=== PATIENT | female | born 1940 | race Caucasian/White ===

== ENCOUNTER → 2021-09-04 | Outpatient (CLI) | payer MEDICARE ==
[2021-09-04 20:43] LABS: ALBUMIN 2.5 gm/dL (3.4-4.8); BILIRUBIN,TOTAL 0.5 mg/dL (0.2-1.2); CALCIUM 9.9 mg/dL (8.4-10.2); CREATININE, serum 1.14 mg/dL (0.57-1.11); POTASSIUM 4.1 mmol/L (3.5-4.5); TOTAL PROTEIN 7.6 gm/dL (6.2-8.1)
== END ==
LOC: ZCOL.LAB 20:21
PROVIDERS: Internal Medicine
DX: Z01.89 Encounter for other specified special examinations (principal)

== ENCOUNTER → 2021-09-06 | Outpatient (REF) ==
[2021-09-06 16:09] LABS: BASO # 0.1 K/mm3 (0.0-0.2); BASO % 0.6 % (0.0-2.0); EOS # 0.2 K/mm3 (0.0-0.7); EOS % 1.3 % (0.0-4.0); GRAN # 8.9 K/mm3 (1.4-6.5); GRAN % 76.7 % (42.2-75.2); HEMOGLOBIN 10.1 g/dl (12.5-16.0); LYMPH # 1.7 K/mm3 (1.2-3.4); LYMPH % 14.6 % (20.0-51.0); MEAN CELL VOLUME 91 fl (80.0-100.0); MEAN CORPUSCULAR HEMOGLOBIN 29 pg (27-31); MEAN CORPUSCULAR HGB CONC 32 g/dl (33.0-37.0); MEAN PLATELET VOLUME 10.3 fl (7.4-10.4); MONO # 0.7 K/mm3 (0.1-0.6); MONO % 6.3 % (1.7-9.3); PLATELET COUNT 845 K/mm3 (130-400); RED BLOOD COUNT 3.54 M/mm3 (4.10-5.30); REDCELL DISTRIBUTION WIDTH-CV 13.7 % (11.5-14.5)
[2021-09-06 16:10] LABS: HEMATOCRIT 32.1 % (37.0-47.0)
[2021-09-06 16:25] LABS: ALBUMIN 2.6 gm/dL (3.4-4.8); BILIRUBIN,TOTAL 0.5 mg/dL (0.2-1.2); C-REACTIVE PROTEIN 3.94 mg/dL (0.00-0.50); CALCIUM 9.7 mg/dL (8.4-10.2); CREATININE, serum 1.13 mg/dL (0.57-1.11); POTASSIUM 3.7 mmol/L (3.5-4.5); TOTAL PROTEIN 7.5 gm/dL (6.2-8.1)
[2021-09-06 16:39] LABS: ERYTHROCYTE SEDIMENTATION RATE > 140 mm/hr (0-30)
== END ==
LOC: ZLAB.STJ 15:59
PROVIDERS: Internal Medicine
DX: D64.9 Anemia, unspecified (principal)

== ENCOUNTER 2021-09-07 15:32 | Emergency (ER) | payer MEDICARE ==
[~2021-09-07] VITALS: Ht 160 cm; Wt 65.5 kg
[2021-09-07 15:35] VITALS: TEMP 98.5
[2021-09-07 16:15] LABS: BASO # 0.1 K/mm3 (0.0-0.2); BASO % 0.8 % (0.0-2.0); EOS # 0.1 K/mm3 (0.0-0.7); EOS % 0.8 % (0.0-4.0); GRAN # 9.9 K/mm3 (1.4-6.5); GRAN % 75.8 % (42.2-75.2); HEMOGLOBIN 10.6 g/dl (12.5-16.0); LYMPH # 1.9 K/mm3 (1.2-3.4); LYMPH % 14.2 % (20.0-51.0); MEAN CELL VOLUME 90 fl (80.0-100.0); MEAN CORPUSCULAR HEMOGLOBIN 29 pg (27-31); MEAN CORPUSCULAR HGB CONC 32 g/dl (33.0-37.0); MEAN PLATELET VOLUME 10.3 fl (7.4-10.4); MONO % 7.8 % (1.7-9.3); PLATELET COUNT 814 K/mm3 (130-400); RED BLOOD COUNT 3.71 M/mm3 (4.10-5.30); REDCELL DISTRIBUTION WIDTH-CV 13.9 % (11.5-14.5)
[2021-09-07 16:28] LABS: HEMATOCRIT 33.5 % (37.0-47.0)
[2021-09-07 16:36] LABS: ALBUMIN 2.7 gm/dL (3.4-4.8); BILIRUBIN,TOTAL 0.6 mg/dL (0.2-1.2); C-REACTIVE PROTEIN 5.56 mg/dL (0.00-0.50); CALCIUM 9.8 mg/dL (8.4-10.2); CREATININE, serum 1.25 mg/dL (0.57-1.11); POTASSIUM 5.1 mmol/L (3.5-4.5); TOTAL PROTEIN 8.4 gm/dL (6.2-8.1)
[2021-09-07 16:56] LABS: COLLECTION METHOD CLEAN CATCH
[2021-09-07 17:18] LABS: BUDDING YEAST Present (NOT PRESENT); MUCOUS Present (NOT PRESENT); PH 7 (5-8); SQUAMOUS EPITHELIAL 0-2 /hpf (0-10); URINE APPEARANCE Cloudy (CLEAR/HAZY); URINE BACTERIA Rare /hpf (NONE SEEN); URINE BILIRUBIN Negative (NEGATIVE); URINE BLOOD 1+ (NEGATIVE); URINE COLOR Yellow (YELLOW); URINE GLUCOSE Negative (NEGATIVE); URINE KETONE Negative (NEGATIVE); URINE LEUKOCYTE ESTERASE 3+ (NEGATIVE); URINE NITRATE Negative (NEGATIVE); URINE PROTEIN(semi-quant) Negative (NEGATIVE); URINE UROBILINOGEN Negative (NEGATIVE)
[2021-09-07 19:25] VITALS: BP 104/40; PULSE 75
== END 2021-09-07 19:30 | disposition home or self-care (01) ==
LOC: COL.ER 15:32
PROVIDERS: Family Medicine
DX: R63.0 Anorexia (principal); R74.8 Abnormal levels of other serum enzymes; Z28.310 Unvaccinated for COVID-19
CPT/HCPCS: J2405; J7120; Q9967

== ENCOUNTER → 2021-09-12 | Outpatient (REF) ==
[2021-09-12 10:50] LABS: BASO # 0.1 K/mm3 (0.0-0.2); BASO % 0.6 % (0.0-2.0); EOS # 0.1 K/mm3 (0.0-0.7); EOS % 0.7 % (0.0-4.0); GRAN # 9.5 K/mm3 (1.4-6.5); GRAN % 78.2 % (42.2-75.2); LYMPH # 1.4 K/mm3 (1.2-3.4); LYMPH % 11.3 % (20.0-51.0); MEAN CELL VOLUME 91 fl (80.0-100.0); MEAN CORPUSCULAR HGB CONC 32 g/dl (33.0-37.0); MEAN PLATELET VOLUME 10.9 fl (7.4-10.4); MONO # 1.1 K/mm3 (0.1-0.6); MONO % 8.8 % (1.7-9.3); PLATELET COUNT 657 K/mm3 (130-400); RED BLOOD COUNT 3.35 M/mm3 (4.10-5.30); REDCELL DISTRIBUTION WIDTH-CV 13.6 % (11.5-14.5)
[2021-09-12 10:51] LABS: HEMATOCRIT 30.4 % (37.0-47.0); HEMOGLOBIN 9.6 g/dl (12.5-16.0); MEAN CORPUSCULAR HEMOGLOBIN 29 pg (27-31)
[2021-09-12 11:12] LABS: ALBUMIN 2.4 gm/dL (3.4-4.8); BILIRUBIN,TOTAL 0.7 mg/dL (0.2-1.2); CALCIUM 9.8 mg/dL (8.4-10.2); CREATININE, serum 1.17 mg/dL (0.57-1.11); POTASSIUM 4.4 mmol/L (3.5-4.5); TOTAL PROTEIN 7.5 gm/dL (6.2-8.1)
== END ==
LOC: ZLAB.STJ 10:43
PROVIDERS: Internal Medicine
DX: N17.9 Acute kidney failure, unspecified (principal); A40.3 Sepsis due to Streptococcus pneumoniae

== ENCOUNTER 2021-09-22 16:53 | Emergency (ER) | payer MEDICARE ==
[~2021-09-22] VITALS: Ht 160 cm; Wt 65.5 kg
[2021-09-22 18:04] LABS: MEAN CELL VOLUME 88 fl (80.0-100.0); MEAN CORPUSCULAR HEMOGLOBIN 29 pg (27-31); MEAN CORPUSCULAR HGB CONC 32 g/dl (33.0-37.0); MEAN PLATELET VOLUME 10.1 fl (7.4-10.4); PLATELET COUNT 430 K/mm3 (130-400); RED BLOOD COUNT 3.51 M/mm3 (4.10-5.30); REDCELL DISTRIBUTION WIDTH-CV 13.9 % (11.5-14.5)
[2021-09-22 18:19] LABS: BAND 34 % (0-10); LYMPHOCYTE 2 % (20.0-51.0); NEUTROPHILS 61 % (42.0-75.2); PLATELET ESTIMATE INCREASED (NORMAL)
[2021-09-22 18:29] LABS: ALBUMIN 1.8 gm/dL (3.4-4.8); BILIRUBIN,TOTAL 0.7 mg/dL (0.2-1.2); CREATININE, serum 1.63 mg/dL (0.57-1.11); POTASSIUM 4.4 mmol/L (3.5-4.5); TOTAL PROTEIN 7.4 gm/dL (6.2-8.1)
[2021-09-22 18:30] LABS: C-REACTIVE PROTEIN 35.68 mg/dL (0.00-0.50)
[2021-09-22 21:20] VITALS: BP 120/73; PULSE 83; TEMP 98.6
== END 2021-09-22 21:20 | disposition short-term general hospital (02) ==
LOC: COL.ER 16:53
PROVIDERS: Physician Assistant
DX: L89.313 Pressure ulcer of right buttock, stage 3 (principal); M72.6 Necrotizing fasciitis; I96 Gangrene, not elsewhere classified; A41.9 Sepsis, unspecified organism
CPT/HCPCS: J1815; J2543; J3010; J3370; J7030; J7050